=== PATIENT | female | born 1985 | race Caucasian/White ===

== ENCOUNTER 2016-10-04 21:09 | Emergency (ER) | payer OTHER ==
--- NOTE | 2016-10-05 06:04 | ER ---
ADMIT: 10/04/2016 RM/LOC: ER [facility] MR#: [id number] [address] [id number] EUGENIACAROLYN Waqar [facility] [place] [address] Emergency Room Report SEX: F AGE: 30 : 1985 DATE: 10/04/2016 HISTORY OF PRESENT ILLNESS: The patient is a 30-year-old female with past medical history of chronic back pain, came to the ER with chief complaint of dysuria for 1 week, which is mild. The patient states she also sometimes has frequency and states that recently she got Macrobid p.o. and she recently started it and got a few doses. The patient also complains of questionable blood in the urine, which she noticed one time today. The patient denies she could be and states she is not on menses. The patient states also she has some left flank pain, which was mild to moderate and is intermittent and was resolved by itself. At the moment, the patient has no pain. PHYSICAL EXAMINATION: VITAL SIGNS: The patient had stable vitals. HEAD AND NECK: Noncontributory. CHEST: Normal. ABDOMEN: Has no CVA tenderness or other tenderness or rebound. The rest of the physical exam is noncontributory. LABORATORY DATA: Urine was negative for white BC and RBC and also was negative for . ASSESSMENT AND PLAN: The patient has already been taking the medications for urinary tract infection. The patient is stable to be discharged to home to be followed up with the primary doctor as needed. Dyllan Mann MD/ [facility] JOB #: [id number] CC: Dyllan Mann MD, Attending Physician
== END 2016-10-04 22:15 | disposition home or self-care (01) ==
LOC: ER 21:09
DX: N39.0 Urinary tract infection, site not specified (principal)